=== PATIENT | male | born 1985 | race African-American/Black ===

== ENCOUNTER 2017-03-16 13:30 | Inpatient (IN) | payer OTHER ==
[2017-03-16 13:50] VITALS: BMI 26.5
--- NOTE | 2017-03-16 19:11 | HP ---
CIWA Score - CIWA Score Nausea/Vomitin-Mild Nausea/No Vomiting Muscle Tremors: 3 Anxiety: 3 Agitation: 3 Paroxysmal Sweats: 1-Minimal Palms Moist Orientation: 3-Disoriented Date>2 days Tacttile Disturbances: 0-None Auditory Disturbances: 0-None Visual Disturbances: 0-None Headache: 0-None Present CIWA-Ar Total Score: 14 Admission ROS BHS - HPI Chief Complaint: WITHDRAWAL SX Allergies/Adverse Reactions: Allergies Allergy/AdvReac Type Severity Reaction Status Date / Time apple Allergy Severe Itching Verified 03/16/17 17:54 SHRIMP Allergy Severe Itching Uncoded 03/16/17 17:54 NKDA Allergy Uncoded 03/16/17 17:54 History of Present Illness: 31 YEARS OLD MALE WITH LONG HISTORY OF ALCOHOL NICOTINE DEPENDENCE DENIES MEDICAL ISSUE HAS DEPRESSION IS ADMITTED TO DETOX Exam Limitations: No Limitations - Ebola screening Have you traveled outside of the country in the last 21 days: No Have you had contact with anyone from an Ebola affected area: No Have you been sick,other than usual withdrawal symptoms: No Do you have a fever: No - Review of Systems Constitutional: Chills, Changes in sleep, Weight Stable EENT: reports: No Symptoms Reported Respiratory: reports: No Symptoms reported Cardiac: reports: No Symptoms Reported GI: reports: Nausea, Poor Fluid Intake, Abdominal cramping : reports: No Symptoms Reported Musculoskeletal: reports: No Symptoms Reported Integumentary: reports: Rash (NECK) Neuro: reports: Tremors Endocrine: reports: No Symptoms Reported Hematology: reports: No Symptoms Reported Psychiatric: reports: Judgement Intact, Anxious, Depressed Other Systems: Reviewed and Negative Patient History - Patient Medical History Hx Anemia: No Hx Asthma: No Hx Chronic Obstructive Pulmonary Disease (COPD): No Hx Cancer: No Hx Cardiac Disorders: No Hx Congestive Heart Failure: No Hx Hypertension: No Hx Hypercholesterolemia: No Hx Pacemaker: No HX Cerebrovascular Accident: No Hx Seizures: No Hx Dementia: No Hx Diabetes: No Hx Gastrointestinal Disorders: No Hx Liver Disease: No Hx Genitourinary Disorders: No Hx Sexually Transmitted Disorders: No Hx Renal Disease (ESRD): No Hx Thyroid Disease: No Hx Human Immunodeficiency Virus (HIV): No Hx Hepatitis C: No Hx Depression: Yes Hx Suicide Attempt: Yes (09/2016 CUT LEFT FOREARM) Hx Bipolar Disorder: No Hx Schizophrenia: No - Patient Surgical History Past Surgical History: No Hx Neurologic Surgery: No Hx Cataract Extraction: No Hx Cardiac Surgery: No Hx Lung Surgery: No Hx Breast Surgery: No Hx Breast Biopsy: No Hx Abdominal Surgery: No Hx Appendectomy: No Hx Cholecystectomy: No Hx Genitourinary Surgery: No Hx Orthopedic Surgery: No - PPD History Previous Implant?: Yes Documented Results: Negative w/o proof Implanted On Prior R Admission?: No PPD to be Administered?: Yes - Smoking Cessation Smoking history: Current every day smoker Have you smoked in the past 12 months: Yes Aproximately how many cigarettes per day: 3 Cigars Per Day: 0 Hx Chewing Tobacco Use: No Initiated information on smoking cessation: Yes 'Breaking Loose' booklet given: 03/16/17 - Substance & Tx. History Hx Alcohol Use: Yes Hx Substance Use: No Substance Use Type: Alcohol Hx Substance Use Treatment: Yes - Substances Abused Alcohol Route: Oral Frequency: Daily Amount used: LIQUOR- 3 PINTS Age of first use: 17 Date of Last Use: 03/15/17 Family Disease History - Family Disease History Family Disease History: Heart Disease: Father, Sister, [place]: Mother Admission Physical Exam S - Vital Signs Vital Signs: Vital Signs - 24 hr 03/16/17 13:48 Temperature 96.4 F L Pulse Rate 62 Respiratory 18 Rate Blood Pressure 179/100 - Physical General Appearance: Yes: Nourished, Appropriately Dressed, Mild Distress, Tremorous, Irritable, Sweating, Anxious HEENTM: Yes: Hearing grossly Normal, Normal ENT Inspection, Normocephalic, Normal Voice Respiratory: Yes: Chest Non-Tender, Lungs Clear, Normal Breath Sounds, No Respiratory Distress, No Accessory Muscle Use Neck: Yes: Supple, Trachea in good position Breast: Yes: Breasts Symetrical Cardiology: Yes: Regular Rhythm, S1, S2, Bradycardia Abdominal: Yes: Non Tender, Soft Genitourinary: Yes: Within Normal Limits Back: Yes: Normal Inspection Musculoskeletal: Yes: full range of Motion, Gait Steady Extremities: Yes: Normal Range of Motion, Non-Tender, Tremors Neurological: Yes: Alert, Motor Strength 5/5, Normal Response, Depressed Affect Integumentary: Yes: Warm Lymphatic: Yes: Within Normal Limits - Diagnostic (1) Alcohol dependence with uncomplicated withdrawal Current Visit: Yes Status: Acute (2) Nicotine dependence Current Visit: Yes Status: Acute Qualifiers: Nicotine product type: cigarettes Substance use status: in withdrawal Qualified Code(s): F17.213 - Nicotine dependence, cigarettes, with withdrawal (3) Anxiety and depression Current Visit: Yes Status: Suspected Cleared for Admission [facility] - Detox or Rehab [facility] Level of Care: Medically Managed Detox Regimen/Protocol: Librium [facility] Breath Alcohol Content Breath Alcohol Content: 0 Urine Drug Screen - Results Drug Screen Negative: Yes
[2017-03-16] MEDS ORDERED: ACETAMINOPHEN 325 MG TABLET (FP) PO PRN (19:17)
[2017-03-16] MEDS ORDERED: MENTHOL/PHENOL 1 EACH UD MM PRN (19:17)
[2017-03-16] MEDS ORDERED: MAGNESIUM HYDROX 2400MG/30ML ORAL SUSPENSION 30 ML CUP PO PRN (19:17)
[2017-03-16] MEDS ORDERED: guaiFENesin/D-METHORPHAN HB 10 ML UNIT-DOSE CUPS PO PRN (19:17)
[2017-03-16] MEDS ORDERED: MAGNESIUM CITRATE 300 ML BOTTLE PO PRN (19:17)
[2017-03-16] MEDS ORDERED: IBUPROFEN 400 MG TABLET (FP) PO PRN (19:17)
[2017-03-16] MEDS ORDERED: MAG HYDROX/AL HYDROX/SIMETH 30 ML UNIT-DOSE CUP PO PRN (19:17)
[2017-03-16] MEDS ORDERED: diphenhydrAMINE HCL 50 MG CAPSULE PO PRN (19:17)
[2017-03-16] MEDS ORDERED: NICOTINE POLACRILEX 2 MG GUM BC PRN (19:17)
[2017-03-16] MEDS ORDERED: chlordiazePOXIDE HCL 25 MG CAPSULE PO PRN (19:17)
[2017-03-16] MEDS ORDERED: P-EPHED 60MG/TRIPROLIDI 2.5MG TABLET PO PRN (19:17)
[2017-03-16] MEDS ORDERED: hydrOXYzine PAMOATE 50 MG CAPSULE (FP) PO PRN (19:17)
[2017-03-16] MEDS ORDERED: LOPERAMIDE HCL 2 MG CAPSULE PO PRN (19:17)
[2017-03-16] MEDS: chlordiazePOXIDE HCL 25 MG CAPSULE PO SCH (22:24)
[2017-03-16] MEDS: THIAMINE HCL 100 MG TABLET (FP) PO SCH (22:25)
[2017-03-16 23:10] LABS: URINE APPEARANCE CLEAR; URINE BILIRUBIN NEGATIVE (NEGATIVE); URINE BLOOD NEGATIVE (NEGATIVE); URINE COLOR STRAW; URINE GLUCOSE (UA) NEGATIVE (NEGATIVE); URINE KETONE NEGATIVE (NEGATIVE); URINE LEUK ESTERASE NEGATIVE (NEGATIVE); URINE NITRITE NEGATIVE (NEGATIVE); URINE PROTEIN NEGATIVE (NEGATIVE); URINE UROBILINOGEN NEGATIVE E.U./dl (0.2-1.0)
[2017-03-17] MEDS: chlordiazePOXIDE HCL 25 MG CAPSULE PO SCH ×4 (06:07→22:24)
[2017-03-17 10:00] LABS: MCH 27.9 pg (25.7-33.7); MCHC 32.7 g/dl (32.0-35.9); MEAN CELL VOLUME 85.3 fl (80-96); MEAN PLT VOLUME 10.7 fl (7.5-11.1); PLATELET COUNT 181 K/MM3 (134-434); RDW 15.1 % (11.9-15.9); WHITE BLOOD COUNT 4.4 K/mm3 (4.0-10.0)
[2017-03-17 10:25] LABS: ALBUMIN 4.6 g/dl (3.4-5.0); ALK PHOS 53 U/L (45-117); ANION GAP 7 (8-16); BILIRUBIN,TOTAL 0.9 mg/dL (0.2-1.0); CALCIUM 9.6 mg/dL (8.5-10.1); CO2 29 mmol/L (21-32); CREATININE 1.2 mg/dL (0.7-1.3); GLUCOSE,RANDOM 104 mg/dL (74-106); SGOT/AST 27 U/L (15-37); SGPT/ALT 42 U/L (12-78); TOT PROT 7.9 g/dl (6.4-8.2)
[2017-03-17] MEDS: NICOTINE 14 MG/24 HOURS TOPICAL PATCH TD SCH (10:39)
[2017-03-17] MEDS: PRENATAL VITAMINS W/ FOLIC ACID TABLET (FP) PO SCH (10:39)
--- NOTE | 2017-03-17 11:13 | PN ---
[facility] CIWA - CIWA Score Nausea/Vomitin Muscle Tremors: 3 Anxiety: 3 Agitation: 2 Paroxysmal Sweats: 1-Minimal Palms Moist Orientation: 0-Oriented Tacttile Disturbances: 1-Very Mild Itch/Numbness Auditory Disturbances: 1-Very Mild Visual Disturbances: 1-Very Mild Sensitivity Headache: 2-Mild CIWA-Ar Total Score: 17 S Progress Note (SOAP) Subjective: ALERT,IRRITABLE,ANXIOUS,INTERRUPTED SLEEP,TREMOR,PAIN IN THE BODY Objective: 03/17/17 11:11 Vital Signs Temperature 98.1 F 03/17/17 10:00 Pulse Rate 59 L 03/17/17 10:00 Respiratory Rate 18 03/17/17 10:00 Blood Pressure 131/79 03/17/17 10:00 O2 Sat by Pulse Oximetry (%) EKG SINUS BRADYCARDIA 49/MIN NO HEST PAIN,NO SOB,NO DIZZINESS Laboratory Last Values WBC 4.4 K/mm3 (4.0-10.0) 03/17/17 06:00 RBC 5.15 M/mm3 (4.00-5.60) 03/17/17 06:00 Hgb 14.4 GM/dL (11.7-16.9) 03/17/17 06:00 Hct 43.9 % (35.4-49) 03/17/17 06:00 MCV 85.3 fl (80-96) 03/17/17 06:00 MCHC 32.7 g/dl (32.0-35.9) 03/17/17 06:00 RDW 15.1 % (11.9-15.9) 03/17/17 06:00 Plt Count 181 K/MM3 (134-434) 03/17/17 06:00 MPV 10.7 fl (7.5-11.1) 03/17/17 06:00 Sodium 136 mmol/L (136-145) 03/17/17 06:00 Potassium 3.8 mmol/L (3.5-5.1) 03/17/17 06:00 Chloride 100 mmol/L (98-107) 03/17/17 06:00 Carbon Dioxide 29 mmol/L (21-32) 03/17/17 06:00 Anion Gap 7 (8-16) L 03/17/17 06:00 BUN 15 mg/dL (7-18) 03/17/17 06:00 Creatinine 1.2 mg/dL (0.7-1.3) 03/17/17 06:00 Creat Clearance w eGFR > 60 (>60) 03/17/17 06:00 Random Glucose 104 mg/dL (74-106) 03/17/17 06:00 Calcium 9.6 mg/dL (8.5-10.1) 03/17/17 06:00 Total Bilirubin 0.9 mg/dL (0.2-1.0) 03/17/17 06:00 AST 27 U/L (15-37) 03/17/17 06:00 ALT 42 U/L (12-78) 03/17/17 06:00 Alkaline Phosphatase 53 U/L (45-117) 03/17/17 06:00 Total Protein 7.9 g/dl (6.4-8.2) 03/17/17 06:00 Albumin 4.6 g/dl (3.4-5.0) 03/17/17 06:00 Urine Color Straw 03/16/17 22:03 Urine Appearance Clear 03/16/17 22:03 Urine pH 7.0 (5.0-8.0) 03/16/17 22:03 Urine Protein Negative (NEGATIVE) 03/16/17 22:03 Urine Glucose (UA) Negative (NEGATIVE) 03/16/17 22:03 Urine Ketones Negative (NEGATIVE) 03/16/17 22:03 Urine Blood Negative (NEGATIVE) 03/16/17 22:03 Urine Nitrite Negative (NEGATIVE) 03/16/17 22:03 Urine Bilirubin Negative (NEGATIVE) 03/16/17 22:03 Urine Urobilinogen Negative E.U./dl (0.2-1.0) 03/16/17 22:03 Ur Leukocyte Esterase Negative (NEGATIVE) 03/16/17 22:03 LABS PENDING Assessment: 03/17/17 11:13 WITHDRAWAL SYMPTOM Plan: CONTINUE DETOX
--- NOTE | 2017-03-17 14:21 | CONSULT ---
[facility] Psychiatric Consult - Data Date of interview: 03/17/17 Admission source: [facility] Identifying data: This is 31 yo AA male single,father of 7 yo girl,resides with aunt,employed in [employer] company. Substance Abuse History: Patient reports started having drinking problems since 17 years old,heavy drinker for years ,can drink 3 pints of vodka daily Medical History: unremarkable. Psychiatric History: patient reports history of depressed nmood and anxiety at time,no psychiatric treatment.Reports suicidal attempt-cut L wrist in Sep 2016.Patient states he is better ,no needs for antidepressants at this time. Physical/Sexual Abuse/Trauma History: denies Mental Status Exam - Mental Status Exam Alert and Oriented to: Time, Place, Person Cognitive Function: Grossly Intact Patient Appearance: Unkempt Mood: Euthymic Affect: Mood Congruent Patient Behavior: Cooperative Speech Pattern: Clear Voice Loudness: Normal Thought Process: Goal Oriented Thought Disorder: Not Present Hallucinations: Denies Suicidal Ideation: Denies Homicidal Ideation: Denies Insight/Judgement: Fair Sleep: Poorly Appetite: Fair Muscle strength/Tone: Normal Gait/Station: Normal Psychiatric Findings - Problem List ([place] 1, 2,3) (1) Nicotine dependence Current Visit: Yes Status: Chronic Qualifiers: Nicotine product type: cigarettes Substance use status: in withdrawal Qualified Code(s): F17.213 - Nicotine dependence, cigarettes, with withdrawal (2) Alcohol dependence with uncomplicated withdrawal Current Visit: Yes Status: Chronic (3) Substance induced mood disorder Current Visit: Yes Status: Suspected - Initial Treatment Plan Initial Treatment Plan: Benadryl 50 mg po hs prn for insomnia. Will monitor progress.
[2017-03-17] MEDS: THIAMINE HCL 100 MG TABLET (FP) PO SCH (22:24)
[2017-03-18] MEDS: chlordiazePOXIDE HCL 25 MG CAPSULE PO SCH ×3 (05:42→17:49)
[2017-03-18] MEDS: PRENATAL VITAMINS W/ FOLIC ACID TABLET (FP) PO SCH (10:34)
[2017-03-18] MEDS: NICOTINE 14 MG/24 HOURS TOPICAL PATCH TD SCH (10:34)
--- NOTE | 2017-03-18 10:53 | PN ---
[facility] CIWA - CIWA Score Nausea/Vomitin Muscle Tremors: 3 Anxiety: 2 Agitation: 2 Paroxysmal Sweats: No Perspiration Orientation: 1-Uncertain about Date Tacttile Disturbances: 1-Very Mild Itch/Numbness Auditory Disturbances: 1-Very Mild Visual Disturbances: 1-Very Mild Sensitivity Headache: 1-Very Mild CIWA-Ar Total Score: 15 S Progress Note (SOAP) Subjective: ALERT,IRRITABLE,ANXIOUS,INTERRUPTED SLEEP,TREMOR Objective: 03/18/17 10:52 Vital Signs Temperature 96.3 F L 03/18/17 10:13 Pulse Rate 61 03/18/17 10:13 Respiratory Rate 16 03/18/17 10:13 Blood Pressure 144/71 03/18/17 10:13 O2 Sat by Pulse Oximetry (%) Laboratory Last Values WBC 4.4 K/mm3 (4.0-10.0) 03/17/17 06:00 RBC 5.15 M/mm3 (4.00-5.60) 03/17/17 06:00 Hgb 14.4 GM/dL (11.7-16.9) 03/17/17 06:00 Hct 43.9 % (35.4-49) 03/17/17 06:00 MCV 85.3 fl (80-96) 03/17/17 06:00 MCHC 32.7 g/dl (32.0-35.9) 03/17/17 06:00 RDW 15.1 % (11.9-15.9) 03/17/17 06:00 Plt Count 181 K/MM3 (134-434) 03/17/17 06:00 MPV 10.7 fl (7.5-11.1) 03/17/17 06:00 Sodium 136 mmol/L (136-145) 03/17/17 06:00 Potassium 3.8 mmol/L (3.5-5.1) 03/17/17 06:00 Chloride 100 mmol/L (98-107) 03/17/17 06:00 Carbon Dioxide 29 mmol/L (21-32) 03/17/17 06:00 Anion Gap 7 (8-16) L 03/17/17 06:00 BUN 15 mg/dL (7-18) 03/17/17 06:00 Creatinine 1.2 mg/dL (0.7-1.3) 03/17/17 06:00 Creat Clearance w eGFR > 60 (>60) 03/17/17 06:00 Random Glucose 104 mg/dL (74-106) 03/17/17 06:00 Calcium 9.6 mg/dL (8.5-10.1) 03/17/17 06:00 Total Bilirubin 0.9 mg/dL (0.2-1.0) 03/17/17 06:00 AST 27 U/L (15-37) 03/17/17 06:00 ALT 42 U/L (12-78) 03/17/17 06:00 Alkaline Phosphatase 53 U/L (45-117) 03/17/17 06:00 Total Protein 7.9 g/dl (6.4-8.2) 03/17/17 06:00 Albumin 4.6 g/dl (3.4-5.0) 03/17/17 06:00 Urine Color Straw 03/16/17 22:03 Urine Appearance Clear 03/16/17 22:03 Urine pH 7.0 (5.0-8.0) 03/16/17 22:03 Ur Specific [place] 1.015 (1.005-1.025) 03/16/17 22:03 Urine Protein Negative (NEGATIVE) 03/16/17 22:03 Urine Glucose (UA) Negative (NEGATIVE) 03/16/17 22:03 Urine Ketones Negative (NEGATIVE) 03/16/17 22:03 Urine Blood Negative (NEGATIVE) 03/16/17 22:03 Urine Nitrite Negative (NEGATIVE) 03/16/17 22:03 Urine Bilirubin Negative (NEGATIVE) 03/16/17 22:03 Urine Urobilinogen Negative E.U./dl (0.2-1.0) 03/16/17 22:03 Ur Leukocyte Esterase Negative (NEGATIVE) 03/16/17 22:03 RPR Titer Nonreactive (NONREACTIVE) 03/17/17 06:00 Assessment: 03/18/17 10:52 WITHDRAWAL SYMPTOM Plan: CONTINUE DETOX
[2017-03-18] MEDS: THIAMINE HCL 100 MG TABLET (FP) PO SCH (22:13)
[2017-03-18] MEDS: chlordiazePOXIDE 5 MG CAPSULE PO SCH (22:13)
[2017-03-19] MEDS: chlordiazePOXIDE 5 MG CAPSULE PO SCH ×3 (05:17→17:37)
[2017-03-19] MEDS: NICOTINE 14 MG/24 HOURS TOPICAL PATCH TD SCH (10:27)
[2017-03-19] MEDS: PRENATAL VITAMINS W/ FOLIC ACID TABLET (FP) PO SCH (10:27)
--- NOTE | 2017-03-19 12:52 | PN ---
BHS Progress Note (SOAP) Subjective: Tremors, Sweating. Objective: PT. A & O X 3, OBSERVED AMBULATING ON UNIT. NO ACUTE DISTRESS. PT. DENIES CHEST PAIN AND DIZZINESS / LIGHTHEADEDNESS. PT. DENIES HISTORY OF HTN. 03/19/17 12:49 Vital Signs Temperature 98.1 F 03/18/17 22:19 Pulse Rate 81 03/18/17 22:19 Respiratory Rate 18 03/19/17 00:30 Blood Pressure 157/88 03/18/17 22:19 O2 Sat by Pulse Oximetry (%) Laboratory Tests 03/16/17 03/17/17 03/17/17 22:03 06:00 06:00 WBC 4.4 RBC 5.15 Hgb 14.4 Hct 43.9 MCV 85.3 MCHC 32.7 RDW 15.1 Plt Count 181 MPV 10.7 Sodium 136 Potassium 3.8 Chloride 100 Carbon Dioxide 29 Anion Gap 7 L BUN 15 Creatinine 1.2 Creat Clearance w eGFR > 60 Random Glucose 104 Calcium 9.6 Total Bilirubin 0.9 AST 27 ALT 42 Alkaline Phosphatase 53 Total Protein 7.9 Albumin 4.6 Urine Color Straw Urine Appearance Clear Urine pH 7.0 Ur Specific [place] 1.015 Urine Protein Negative Urine Glucose (UA) Negative Urine Ketones Negative Urine Blood Negative Urine Nitrite Negative Urine Bilirubin Negative Urine Urobilinogen Negative Ur Leukocyte Esterase Negative RPR Titer 03/17/17 06:00 WBC RBC Hgb Hct MCV MCHC RDW Plt Count MPV Sodium Potassium Chloride Carbon Dioxide Anion Gap BUN Creatinine Creat Clearance w eGFR Random Glucose Calcium Total Bilirubin AST ALT Alkaline Phosphatase Total Protein Albumin Urine Color Urine Appearance Urine pH Ur Specific [place] Urine Protein Urine Glucose (UA) Urine Ketones Urine Blood Urine Nitrite Urine Bilirubin Urine Urobilinogen Ur Leukocyte Esterase RPR Titer Nonreactive LABS NOTED. 03/19/17 13:55 03/19/17 13:57 Assessment: 03/19/17 12:50 WITHDRAWAL SYMPTOMS. Plan: CONTINUE DETOX. CONTINUE TO MONITOR BP. ADVISED PATIENT TO FOLLOW-UP WITH [facility] REPAIR SUPERVISOR AFTER DISCHARGE FROM DETOX FOR GENERAL MEDICAL ASSESSMENT.
[2017-03-19] MEDS: chlordiazePOXIDE HCL 10 MG CAPSULE PO SCH (22:17)
[2017-03-19] MEDS: THIAMINE HCL 100 MG TABLET (FP) PO SCH (22:17)
--- NOTE | 2017-03-19 22:18 | EKG ---
Test Reason : Blood Pressure : / mmHG Vent. Rate : 049 BPM Atrial Rate : 049 BPM P-R Int : 138 ms QRS Dur : 102 ms QT Int : 428 ms P-R-T Axes : 060 048 032 degrees QTc Int : 386 ms SINUS BRADYCARDIA VOLTAGE CRITERIA FOR LEFT VENTRICULAR HYPERTROPHY ABNORMAL ECG NO PREVIOUS ECGS AVAILABLE Confirmed by VELASQUEZ GALLARDO MD ([id number]) on 03/19/2017 10:18:17 PM Referred By: Confirmed By:VELASQUEZ GALLARDO MD
[2017-03-20] MEDS: chlordiazePOXIDE HCL 10 MG CAPSULE PO SCH ×2 (06:18→12:41)
--- NOTE | 2017-03-20 08:34 | DS ---
[facility] Detox Discharge Summary Admission Date: 03/16/17 Discharge Date: 03/20/17 - History Present History: Alcohol Dependence Additional Comments: follow up with after care program as arrangement Pertinent Past History: nicotine dependence - Physical Exam Results Vital Signs: Vital Signs Temperature 97.7 F 03/20/17 05:00 Pulse Rate 56 L 03/20/17 05:00 Respiratory Rate 18 03/20/17 05:00 Blood Pressure 106/50 03/20/17 05:00 O2 Sat by Pulse Oximetry (%) Pertinent Admission Physical Exam Findings: withdrawal symptom - Treatment Hospital Course: Detox Protocol Followed, Detoxed Safely, Responded well, Discharged Condition Good, Rehab Referral Accepted Patient has Accepted a Rehab Referral to: [facility] - Medication Discharge Medications: Ambulatory Orders Aripiprazole [Abilify -] 10 mg PO DAILY 03/10/15 Gabapentin [Neurontin -] 300 mg PO HS 03/10/15 - Diagnosis (1) Alcohol dependence with uncomplicated withdrawal Current Visit: Yes Status: Chronic (2) Nicotine dependence Current Visit: Yes Status: Chronic Qualifiers: Nicotine product type: cigarettes Substance use status: in withdrawal Qualified Code(s): F17.213 - Nicotine dependence, cigarettes, with withdrawal (3) Substance induced mood disorder Current Visit: Yes Status: Suspected - AMA Did Patient Leave Against Medical Advice: No
[2017-03-20 10:54] VITALS: BP 137/72; PULSE 76; TEMP 97.5
--- NOTE | 2017-03-20 11:45 | PN ---
Psychiatric Progress Note Vital Signs: Vital Signs Period Temp Pulse Resp BP Sys/Enrique Pulse Ox Last 24 Hr 97.0 F-97.9 F 56-76 16-20 106-138/50-75 Date of Session: 03/20/17 Chief Complaint:: depressed mood HPI: Patient reprots using druggs due to depression and anxiety Current Medications: Active Medications Generic Name Dose Route Start Last Admin Trade Name Freq PRN Reason Stop Dose Admin Acetaminophen 650 mg 03/16/17 19:17 Tylenol - PO Q4H PRN FEVER OR PAIN Al Hydroxide/Mg Hydroxide 30 ml 03/16/17 19:17 Mylanta Oral Suspension - PO Q6H PRN DYSPEPSIA Chlordiazepoxide HCl 10 mg 03/19/17 23:00 03/20/17 06:18 Librium - PO 03/20/17 17:01 10 mg E2D-YAL BROCK Administration Diphenhydramine HCl 50 mg 03/16/17 19:17 03/19/17 22:18 Benadryl - PO 50 mg HSMR1 PRN Administration INSOMNIA Eucalyptus/Menthol/Phenol/Sorbitol 1 each 03/16/17 19:17 Cepastat Lozenge - MM Q4H PRN SORE THROAT Guaifenesin 10 ml 03/16/17 19:17 Robitussin Dm - PO Q6H PRN COUGH Hydroxyzine Pamoate 50 mg 03/16/17 19:17 Vistaril - PO Q4H PRN AGITATION Ibuprofen 400 mg 03/16/17 19:17 Motrin - PO Q6H PRN SEVERE PAIN Loperamide HCl 4 mg 03/16/17 19:17 Imodium - PO Q6H PRN DIARRHEA Magnesium Citrate 300 ml 03/16/17 19:17 Citroma - PO Q48H PRN CONSTIPATION Magnesium Hydroxide 30 ml 03/16/17 19:17 Milk Of Magnesia - PO DAILY PRN CONSTIPATION Nicotine 14 mg 03/17/17 10:00 03/19/17 10:27 Nicoderm Patch - TD Not Given DAILY BROCK Nicotine Polacrilex 2 mg 03/16/17 19:17 Nicorette Gum - BC Q2H PRN NICOTINE REPLACEMENT RX Multivit/Folic Acid/Iron 1 tab 03/17/17 10:00 03/19/17 10:27 Vitamins (Sjr) - PO 1 tab DAILY BROCK Administration Pseudoephedrine/Triprolidine 1 combo 03/16/17 19:17 Actifed - PO TID PRN NASAL CONGESTION Thiamine HCl 100 mg 03/16/17 22:00 03/19/17 22:17 Vitamin B1 - PO 100 mg HS BROCK Administration Medication(s) Change(s): Celexa 10mg poqd Provider note:: Celexa 10mg poqd Mental Status Exam - Mental Status Exam Alert and Oriented to: Person Cognitive Function: Fair Patient Appearance: Well Groomed Mood: Anxious Affect: Mood Congruent Patient Behavior: Cooperative Speech Pattern: Appropriate Voice Loudness: Normal Thought Process: Circumstantial Thought Disorder: Being Controlled Hallucinations: Denies Suicidal Ideation: Denies Homicidal Ideation: Denies Insight/Judgement: Fair Sleep: Difficulty falling asleep Appetite: Fair Muscle strength/Tone: Normal Gait/Station: Normal Additional Comments: Celexa 10mg poqd Psychiatric Treatment Plan - Problem List (1) Alcohol dependence with uncomplicated withdrawal Current Visit: Yes (2) Nicotine dependence Current Visit: Yes Qualifiers: Nicotine product type: cigarettes Substance use status: in withdrawal Qualified Code(s): F17.213 - Nicotine dependence, cigarettes, with withdrawal (3) Anxiety and depression Current Visit: Yes (4) Substance induced mood disorder Current Visit: Yes Initial treatment plan: Celexa 10mg poqd
[2017-03-20] MEDS ORDERED: CITALOPRAM HYDROBROMIDE 10 MG TABLET (FP) PO SCH (12:00)
[2017-03-20] MEDS: NICOTINE 14 MG/24 HOURS TOPICAL PATCH TD SCH (12:40)
[2017-03-20] MEDS: PRENATAL VITAMINS W/ FOLIC ACID TABLET (FP) PO SCH (12:41)
== END 2017-03-20 14:55 | disposition other institution (70) | DRG 775 ==
LOC: YASAS 13:30 → Y6N 19:45
PROVIDERS: ADMIT Internal Medicine; ATTEND Internal Medicine
PROC: HZ2ZZZZ Detoxification Services for Substance Abuse Treatment (ICD-10-PCS; principal; 2017-03-16)
DX: F10.230 Alcohol dependence with withdrawal, uncomplicated (principal); F17.210 Nicotine dependence, cigarettes, uncomplicated; F19.24 Other psychoactive substance dependence with psychoactive substance-induced mood disorder; F41.8 Other specified anxiety disorders; R00.1 Bradycardia, unspecified; Z91.5 Personal history of self-harm
CPT/HCPCS: 36415; 80053; 81003; 85027; 86593; 93005; 93010

== ENCOUNTER 2017-03-20 15:00 | Inpatient (IN) | payer OTHER ==
[2017-03-20] MEDS ORDERED: MAGNESIUM HYDROX 2400MG/30ML ORAL SUSPENSION 30 ML CUP PO PRN (16:32)
[2017-03-20] MEDS ORDERED: NICOTINE POLACRILEX 2 MG GUM BUC PRN (16:32)
[2017-03-20] MEDS ORDERED: NICOTINE 14 MG/24 HOURS TOPICAL PATCH TD PRN (16:32)
[2017-03-20] MEDS ORDERED: ACETAMINOPHEN 325 MG TABLET (FP) PO PRN (16:32)
[2017-03-20] MEDS ORDERED: diphenhydrAMINE HCL 50 MG CAPSULE PO PRN (16:32)
[2017-03-20] MEDS ORDERED: IBUPROFEN 400 MG TABLET (FP) PO PRN (16:32)
[2017-03-20] MEDS ORDERED: MAGNESIUM CITRATE 300 ML BOTTLE PO PRN (16:32)
[2017-03-20] MEDS ORDERED: MAG HYDROX/AL HYDROX/SIMETH 30 ML UNIT-DOSE CUP PO PRN (16:32)
[2017-03-20] MEDS ORDERED: P-EPHED 60MG/TRIPROLIDI 2.5MG TABLET PO PRN (16:32)
[2017-03-20] MEDS ORDERED: MENTHOL/PHENOL 1 EACH UD MM PRN (16:32)
[2017-03-20] MEDS ORDERED: LOPERAMIDE HCL 2 MG CAPSULE PO PRN (16:32)
[2017-03-20] MEDS ORDERED: guaiFENesin/D-METHORPHAN HB 10 ML UNIT-DOSE CUPS PO PRN (16:32)
--- NOTE | 2017-03-20 16:32 | HP ---
[facility] Rehab Assess/Revision - Admission History Admitted to Rehab from: [facility] Date of Admission to Rehab: 03/20/17 - Findings Detox History & Physical reviewed: Yes Concur with findings: Yes Comments/Additional Findings: TRANSFERRED FROM DETOX TO REHAB ADMISSINO PER PROTOCOL
[2017-03-20] MEDS: THIAMINE HCL 100 MG TABLET (FP) PO SCH (22:08)
--- NOTE | 2017-03-21 06:24 | HP ---
Psychiatrist Admission - Data Date of interview: 03/21/17 Admission source: [facility] Identifying data: This is the first [facility] admission for this 31 years old single Black male, father of a 7 years old daughter, employed by a [employer] company, domiciled living with his aunt Medical History: Unremakable except for history of fracture left wrist/ankle as a child. Smokes 3 cigarettes daily Psychiatric History: Reports history of multiple alcohol-related psychiatric inpatient admissions over the past 3.5 years. Claims that he would go to hospital while under the influence of alcohol and would express suicidal ideations. He said that he would be kept for a few days and referred to a substance abuse program on discharge. He was admitted to 2 hospitals in [place] including [place] and multiple times to [facility] in [facility] and [facility]. Most recent one was [facility] in September 2016 for superficial cut to his forearm. Claims that, while on the psychiatric unit a few times, he was prescribed medications but does not recall name of any medication. Physical/Sexual Abuse/Trauma History: Denies history og emotional, physical or sexual buse as well as DV relatioship. No service Additional Comment: Reports hisrory of 2-4 misdemeanor arrests. Reports being currently on probation till October 2019 Vital Signs: Vital Signs - 24 hr 03/21/17 03/21/17 00:30 03:30 Respiratory 16 16 Rate Allergies/Adverse Reactions: Allergies Allergy/AdvReac Type Severity Reaction Status Date / Time apple Allergy Severe Itching Verified 03/16/17 17:54 SHRIMP Allergy Severe Itching Uncoded 03/16/17 17:54 NKDA Allergy Uncoded 03/16/17 17:54 Date of last physical exam: 03/16/17 Concur with the findings of this exam: Yes - Substance Abuse/Tx History Hx Alcohol Use: Yes Hx Substance Use: No Substance Use Type: Alcohol (Started drinking alcohol at age 17, consumes 3 pints daily. Last drink on 03/15/17) Hx Substance Use Treatment: Yes (one previous complete inpt detox) - Admission Criteria Previous failed treatment: Yes Poor recovery environment: Yes Lacks judgement: Yes Mental Status Exam - Mental Status Exam Alert and Oriented to: Time, Place, Person Cognitive Function: Fair Patient Appearance: Well Groomed Mood: Hopeful, Euthymic Patient Behavior: Cooperative Speech Pattern: Clear Voice Loudness: Normal Thought Process: Intact, Goal Oriented Hallucinations: Denies Suicidal Ideation: Denies Homicidal Ideation: Denies Insight/Judgement: Fair Sleep: Well Appetite: Good Muscle strength/Tone: Normal Gait/Station: Normal Psychiatric Findings - Problem List ([place] 1, 2,3) (1) Alcohol dependence Current Visit: Yes Status: Acute (2) Nicotine dependence Current Visit: No Status: Chronic Qualifiers: Nicotine product type: cigarettes Substance use status: in withdrawal Qualified Code(s): F17.213 - Nicotine dependence, cigarettes, with withdrawal (3) Substance induced mood disorder Current Visit: No Status: Suspected - Initial Treatment Plan Initial Treatment Plan: Monitor progress
[2017-03-21] MEDS: PRENATAL VITAMINS W/ FOLIC ACID TABLET (FP) PO SCH (10:17)
[2017-03-21] MEDS: THIAMINE HCL 100 MG TABLET (FP) PO SCH (22:55)
[2017-03-22] MEDS: PRENATAL VITAMINS W/ FOLIC ACID TABLET (FP) PO SCH (09:59)
[2017-03-22] MEDS: THIAMINE HCL 100 MG TABLET (FP) PO SCH (21:30)
[2017-03-23] MEDS: PRENATAL VITAMINS W/ FOLIC ACID TABLET (FP) PO SCH (10:13)
[2017-03-23] MEDS: THIAMINE HCL 100 MG TABLET (FP) PO SCH (21:45)
[2017-03-24] MEDS: PRENATAL VITAMINS W/ FOLIC ACID TABLET (FP) PO SCH (10:16)
[2017-03-24] MEDS: THIAMINE HCL 100 MG TABLET (FP) PO SCH (21:49)
[2017-03-25] MEDS: PRENATAL VITAMINS W/ FOLIC ACID TABLET (FP) PO SCH (10:04)
[2017-03-25] MEDS: THIAMINE HCL 100 MG TABLET (FP) PO SCH (22:19)
[2017-03-26] MEDS: PRENATAL VITAMINS W/ FOLIC ACID TABLET (FP) PO SCH (10:07)
[2017-03-26] MEDS: THIAMINE HCL 100 MG TABLET (FP) PO SCH (22:01)
[2017-03-27] MEDS: PRENATAL VITAMINS W/ FOLIC ACID TABLET (FP) PO SCH (10:30)
[2017-03-27] MEDS: THIAMINE HCL 100 MG TABLET (FP) PO SCH (21:38)
[2017-03-28] MEDS: PRENATAL VITAMINS W/ FOLIC ACID TABLET (FP) PO SCH (10:07)
[2017-03-28] MEDS: THIAMINE HCL 100 MG TABLET (FP) PO SCH (22:55)
[2017-03-29] MEDS: PRENATAL VITAMINS W/ FOLIC ACID TABLET (FP) PO SCH (09:47)
[2017-03-29] MEDS: THIAMINE HCL 100 MG TABLET (FP) PO SCH (21:25)
[2017-03-30] MEDS: PRENATAL VITAMINS W/ FOLIC ACID TABLET (FP) PO SCH (10:01)
[2017-03-30] MEDS: THIAMINE HCL 100 MG TABLET (FP) PO SCH (21:27)
[2017-03-31] MEDS: PRENATAL VITAMINS W/ FOLIC ACID TABLET (FP) PO SCH (09:53)
[2017-03-31] MEDS: THIAMINE HCL 100 MG TABLET (FP) PO SCH (21:25)
[2017-04-01] MEDS: PRENATAL VITAMINS W/ FOLIC ACID TABLET (FP) PO SCH (09:39)
[2017-04-01] MEDS: THIAMINE HCL 100 MG TABLET (FP) PO SCH (21:22)
[2017-04-02 06:47] VITALS: PULSE 65
[2017-04-02] MEDS: PRENATAL VITAMINS W/ FOLIC ACID TABLET (FP) PO SCH (09:49)
[2017-04-02] MEDS: THIAMINE HCL 100 MG TABLET (FP) PO SCH (21:25)
[2017-04-03 07:42] VITALS: BP 114/71; TEMP 98.8
--- NOTE | 2017-04-03 07:54 | PN ---
Psychiatric Progress Note Vital Signs: Vital Signs Period Temp Pulse Resp BP Sys/Enrique Pulse Ox Last 24 Hr 98.8 F 65 18-18 114/71 Date of Session: 04/03/17 Chief Complaint:: Discharge Note HPI: Patient addressing Alcohol Dependence comorbid with Nicotine Dependence and Substance-Induced Mood Disorder Current Medications: Active Medications Generic Name Dose Route Start Last Admin Trade Name Freq PRN Reason Stop Dose Admin Acetaminophen 650 mg 03/20/17 16:32 Tylenol - PO Q4H PRN FEVER OR PAIN Al Hydroxide/Mg Hydroxide 30 ml 03/20/17 16:32 Mylanta Oral Suspension - PO Q6H PRN DYSPEPSIA Diphenhydramine HCl 50 mg 03/20/17 16:32 Benadryl - PO HSMR1 PRN FOR ITCHING Eucalyptus/Menthol/Phenol/Sorbitol 1 each 03/20/17 16:32 Cepastat Lozenge - MM Q4H PRN SORE THROAT Guaifenesin 10 ml 03/20/17 16:32 Robitussin Dm - PO Q6H PRN COUGH Ibuprofen 400 mg 03/20/17 16:32 Motrin - PO Q6H PRN PAIN Loperamide HCl 4 mg 03/20/17 16:32 Imodium - PO Q6H PRN DIARRHEA Magnesium Hydroxide 30 ml 03/20/17 16:32 Milk Of Magnesia - PO DAILY PRN CONSTIPATION Nicotine 14 mg 03/20/17 16:32 Nicoderm Patch - TD DAILY PRN WITHDRAWAL(CONT SUBST) Nicotine Polacrilex 2 mg 03/20/17 16:32 Nicorette Gum - BUC Q2H PRN NICOTINE REPLACEMENT RX Multivit/Folic Acid/Iron 1 tab 03/21/17 10:00 04/02/17 09:49 Vitamins (Sjr) - PO 1 tab DAILY BROCK Administration Pseudoephedrine/Triprolidine 1 combo 03/20/17 16:32 Actifed - PO TID PRN NASAL CONGESTION Thiamine HCl 100 mg 03/20/17 22:00 04/02/17 21:25 Vitamin B1 - PO 100 mg HS BROCK Administration Current Side Effect: No Lab tests ordered: Yes Lab tests reviewed: Yes Provider note:: Patient has completed this program today. He has Met his treatment goals and will continue to address his issues in outpatient treatment at [facility] at [address] [place] [address]. He is stable for discharge today Total face to face time:: 35 Mental Status Exam - Mental Status Exam Alert and Oriented to: Time, Place, Person Cognitive Function: Fair Patient Appearance: Well Groomed Mood: Hopeful, Euthymic Affect: Appropriate Patient Behavior: Cooperative Speech Pattern: Clear Voice Loudness: Normal Thought Process: Intact, Goal Oriented Thought Disorder: Not Present Hallucinations: Denies Suicidal Ideation: Denies Homicidal Ideation: Denies Insight/Judgement: Fair Sleep: Fair Appetite: Good Muscle strength/Tone: Normal Gait/Station: Normal Psychiatric Treatment Plan - Problem List (1) Alcohol dependence Current Visit: Yes (2) Nicotine dependence Current Visit: No Qualifiers: Nicotine product type: cigarettes Substance use status: in withdrawal Qualified Code(s): F17.213 - Nicotine dependence, cigarettes, with withdrawal (3) Substance induced mood disorder Current Visit: No Initial treatment plan: Patient is discharged today and referred to [facility] for outpatient treatment
[2017-04-03] MEDS: PRENATAL VITAMINS W/ FOLIC ACID TABLET (FP) PO SCH (10:06)
== END 2017-04-03 09:55 | disposition home or self-care (01) | DRG 772 ==
LOC: YASAS 15:00 → Y3W 15:01
PROVIDERS: ADMIT Psychiatry & Neurology Psychiatry; ATTEND Psychiatry & Neurology Psychiatry
PROC: HZ42ZZZ Group Counseling for Substance Abuse Treatment, Cognitive-Behavioral (ICD-10-PCS; principal; 2017-04-03)
DX: F10.20 Alcohol dependence, uncomplicated (principal); F17.210 Nicotine dependence, cigarettes, uncomplicated; F19.24 Other psychoactive substance dependence with psychoactive substance-induced mood disorder